=== PATIENT | female | born 1945 | race Caucasian/White ===

== ENCOUNTER 2019-11-10 12:07 | Outpatient (CLI) | payer OTHER ==
[2019-11-10] MEDS ORDERED: AVALIDE 300-121 EACH (15:01)
[2019-11-10] MEDS ORDERED: NORVASC5 MG (15:01)
== END 2019-11-10 12:11 | disposition home or self-care (01) ==
LOC: LAB 12:07
PROVIDERS: ATTEND Specialist
DX: J44.0 Chronic obstructive pulmonary disease with (acute) lower respiratory infection (principal); Z20.828 Contact with and (suspected) exposure to other viral communicable diseases; R06.2 Wheezing; D68.59 Other primary thrombophilia; I50.23 Acute on chronic systolic (congestive) heart failure; E11.65 Type 2 diabetes mellitus with hyperglycemia; D64.89 Other specified anemias

== ENCOUNTER 2019-11-10 14:39 | Inpatient (IN) | payer OTHER ==
[~2019-11-10] VITALS: Ht 157.5 cm; Wt 117.9 kg
[2019-11-10] MEDS ORDERED: AVALIDE 300-121 EACH (15:01)
[2019-11-10] MEDS ORDERED: NORVASC5 MG (15:01)
== END 2019-11-17 14:53 | disposition home or self-care (01) | DRG 292 ==
LOC: ER 14:39 → MEDI 15:22 → SEC-K 15:22 → MEDJ 19:21 → MEDI 11-12 10:49
PROVIDERS: ADMIT Specialist; ATTEND Specialist
PROC: B24BZZZ Ultrasonography of Heart with Aorta (ICD-10-PCS; principal; 2019-11-10)
PROC: BB24ZZZ Computerized Tomography (CT Scan) of Bilateral Lungs (ICD-10-PCS; 2019-11-10)
PROC: 4A033R1 Measurement of Arterial Saturation, Peripheral, Percutaneous Approach (ICD-10-PCS; 2019-11-10)
PROC: 4A12X4Z Monitoring of Cardiac Electrical Activity, External Approach (ICD-10-PCS; 2019-11-10)
PROC: 0T9B70Z Drainage of Bladder with Drainage Device, Via Natural or Artificial Opening (ICD-10-PCS; 2019-11-10)
PROC: 3E0F7GC Introduction of Other Therapeutic Substance into Respiratory Tract, Via Natural or Artificial Opening (ICD-10-PCS; 2019-11-14)
DX: I11.0 Hypertensive heart disease with heart failure (principal); I31.3 Pericardial effusion (noninflammatory); N39.0 Urinary tract infection, site not specified; I50.43 Acute on chronic combined systolic (congestive) and diastolic (congestive) heart failure; B96.29 Other Escherichia coli [E. coli] as the cause of diseases classified elsewhere; R31.0 Gross hematuria; I48.91 Unspecified atrial fibrillation; R09.02 Hypoxemia; Z79.01 Long term (current) use of anticoagulants

== ENCOUNTER 2021-06-26 07:38 | Emergency (ER) | payer OTHER ==
[~2021-06-26] VITALS: Ht 162.6 cm; Wt 117.0 kg
[~2021-06-26 07:38] MED LIST: AVALIDE 300-121 EACH; NORVASC5 MG
[2021-06-26] MEDS ORDERED: ELIQUIS5 MG PO (07:48)
[2021-06-26] MEDS ORDERED: LASIX20 MG PO (07:49)
[2021-06-26] MEDS ORDERED: ENTRESTO 24 MG1 EACH PO (07:50)
[2021-06-26] MEDS ORDERED: CARVEDILOL ER40 MG PO (07:50)
[2021-06-26] MEDS ORDERED: XOPENEX0.63 MG/3 IH (11:40)
[2021-06-26] MEDS ORDERED: ZITHROMAX TRI-500 MG PO (11:40)
== END 2021-06-26 11:54 | disposition home or self-care (01) ==
LOC: ER 07:38
DX: J45.909 Unspecified asthma, uncomplicated (principal); R05.9 Cough, unspecified; I10 Essential (primary) hypertension; Z20.822 Contact with and (suspected) exposure to COVID-19

== ENCOUNTER 2021-10-14 07:50 | Emergency (ER) | payer OTHER ==
[~2021-10-14] VITALS: Ht 162.6 cm; Wt 117.0 kg
[~2021-10-14 07:50] MED LIST changes: +CARVEDILOL ER40 MG PO; +ELIQUIS5 MG PO; +ENTRESTO 24 MG1 EACH PO; +LASIX20 MG PO; +XOPENEX0.63 MG/3 IH; +ZITHROMAX TRI-500 MG PO
== END 2021-10-14 17:44 | disposition home or self-care (01) ==
LOC: ER 07:50
DX: I11.0 Hypertensive heart disease with heart failure (principal); I50.33 Acute on chronic diastolic (congestive) heart failure; E66.01 Morbid (severe) obesity due to excess calories; Z68.42 Body mass index [BMI] 45.0-49.9, adult; J32.9 Chronic sinusitis, unspecified; Z20.822 Contact with and (suspected) exposure to COVID-19

== ENCOUNTER 2021-10-27 10:21 | Emergency (ER) | payer OTHER ==
[~2021-10-27] VITALS: Ht 165.1 cm; Wt 117.0 kg
[2021-10-27] MEDS ORDERED: CARVEDILOL25 M1 PO (10:59)
[2021-10-27] MEDS ORDERED: FAMOTIDINE20 MG PO (11:00)
[2021-10-27] MEDS ORDERED: VALSARTAN80 MG PO (11:01)
== END 2021-10-27 17:32 | disposition left against medical advice (07) ==
LOC: ER 10:21
DX: R06.02 Shortness of breath (principal); J45.909 Unspecified asthma, uncomplicated; I10 Essential (primary) hypertension; Z95.0 Presence of cardiac pacemaker; Z20.822 Contact with and (suspected) exposure to COVID-19